=== PATIENT | male | born 1955 | race Caucasian/White ===

== ENCOUNTER 2017-05-03 05:54 | Emergency (ER) | payer BC ==
[2017-05-03] MEDS ORDERED: Sodium Chloride 0.9% 1000 ML 1,000 ML IV SCH (06:15)
--- NOTE | 2017-05-03 06:18 | ERPHSYRPT ---
- History of Present Illness Time Seen by Provider: 05/03/17 06:07 Historian: patient Exam Limitations: no limitations Patient Subjective Stated Complaint: patietn having abdominaol pain x 2 weeks, saw nurse pracitioner and she set up ultrasound for next week Triage Nursing Assessment: pt alert and orientedx3, has bowl sounds x4, hasarea on left side of abdomen appears wollen or bulged, non tender to touch Physician History: FOR THE PAST 2 WEEKS PT HAS HAD LEFT FLANK PAIN. LAST BM WAS 2 DAYS AGO & WNL. PT DENIES CHEST PAIN, SHORTNESS OF AIR, FEVER. Allergies/Adverse Reactions: No Known Drug Allergies Allergy (Unverified 08/01/15 11:04) Home Medications: Lansoprazole [Prevacid] 20 mg PO DAILY 06/02/12 [History] Diltiazem HCl 240 mg [Cardizem CD 240 MG] 240 mg PO HS 08/01/15 [History] Hx Tetanus, Diphtheria Vaccination/Date Given: Yes Hx Influenza Vaccination/Date Given: Yes Hx Pneumococcal Vaccination/Date Given: Yes Immunizations Up to Date: Yes - Review of Systems Constitutional: No Fever Respiratory: No Dyspnea Cardiac: No Chest Pain Abdominal/Gastrointestinal: Abdominal Pain, No Vomiting, No Diarrhea All Other Systems: Reviewed and Negative - Past Medical History Pertinent Past Medical History: Yes Neurological History: No Pertinent History ENT History: No Pertinent History Cardiac History: No Pertinent History, Hypertension Respiratory History: No Pertinent History Endocrine Medical History: No Pertinent History Musculoskeletal History: Arthritis GI Medical History: No Pertinent History History: No Pertinent History Psycho-Social History: No Pertinent History Male Reproductive Disorders: No Pertinent History - Past Surgical History Past Surgical History: Yes Neuro Surgical History: No Pertinent History Cardiac: No Pertinent History Respiratory: No Pertinent History Gastrointestinal: Cholecystectomy Genitourinary: No Pertinent History Musculoskeletal: No Pertinent History Male Surgical History: No Pertinent History Other Surgical History: kidney stone - Social History Smoking Status: Never smoker Exposure to second hand smoke: No Drug Use: none Patient Lives Alone: Yes - Nursing Vital Signs Nursing Vital Signs: Initial Vital Signs Temperature 97.9 F Temperature Source Oral Pulse Rate 81 Respiratory Rate 20 Pain Intensity 7 - Physical Exam General Appearance: alert Eye Exam: PERRL/EOMI Ears, Nose, Throat Exam: TMs normal, pharynx normal, moist mucous membranes Neck Exam: normal inspection Respiratory Exam: lungs clear, airway intact Cardiovascular Exam: normal heart sounds Gastrointestinal/Abdomen Exam: soft, normal bowel sounds, No tenderness Back Exam: normal range of motion Extremity Exam: normal inspection, No pedal edema Neurologic Exam: alert, cooperative Skin Exam: warm, dry SpO2 Interpretation: normal SpO2: 95 Oxygen Delivery: Room Air - Course Nursing assessment & vital signs reviewed: Yes - CT Exams Abdomen/Pelvis CT Interpretation: Tele-radiologist Report (fairly extensive colonic diverticulosis without evidence of acute diverticulitis. normal appendix. small periumbilical hernia containing fat, unchanged. no renal or ureteral calculi identified. neither kidney is hydronephrotic.) Ordered Tests: Active Orders 24 hr Category Date Time Status Clean Catch Urine Specimen STAT Care 05/03/17 06:13 Active IV Insertion STAT Care 05/03/17 06:13 Active ABDOMEN AND PELVIS W/0 CONTRAS [CT] Stat Exams 05/03/17 06:13 Taken AMYLASE Stat Lab 05/03/17 06:15 Completed CBC W DIFF Stat Lab 05/03/17 06:15 Completed CMP Stat Lab 05/03/17 06:15 Completed LIPASE Stat Lab 05/03/17 06:15 Completed UA W/ MICROSCOPIC Stat Lab 05/03/17 06:13 Completed Urine Triage Profile Stat Lab 05/03/17 06:13 Completed Medication Summary Generic Name Dose Route Start Last Admin Trade Name Freq PRN Reason Stop Dose Admin Sodium Chloride 1,000 mls @ 100 mls/hr 05/03/17 06:15 05/03/17 06:20 Sodium Chloride 0.9% 1000 Ml IV 06/02/17 06:14 100 mls/hr .Q10H TANNA Administration Lab/Rad Data: Laboratory Result Diagrams 05/03/17 06:15 05/03/17 06:15 Laboratory Results 05/03/17 05/03/17 05/03/17 Range/Units 06:15 06:15 06:13 WBC 8.5 (4.0-10.5) K/mm3 RBC 5.10 (4.1-5.6) M/mm3 Hgb 15.3 (12.5-18.0) gm/dl Hct 46.5 (42-50) % MCV 91.2 (78-100) fl MCH 30.0 (26-32) pg MCHC 32.9 (32-36) g/dl RDW 14.4 H (11.5-14.0) % Plt Count 283 (150-450) K/mm3 MPV 9.6 H (6-9.5) fl Gran % 59.1 (36.0-66.0) % Lymphocytes % 28.9 (24.0-44.0) % Monocytes % 9.4 (0.0-12.0) % Eosinophils % 2.1 (0.00-5.0) % Basophils % 0.5 (0.0-0.4) % Basophils # 0.04 (0-0.4) Sodium 139 (136-145) mEq/L Potassium 3.7 (3.5-5.1) mEq/L Chloride 104 (98-107) mEq/L Carbon Dioxide 27.0 (21-32) mEq/L Anion Gap 11.4 (5-15) MEQ/L BUN 16 (9-20) mg/dL Creatinine 1.01 (0.55-1.30) mg/dl Estimated GFR > 60 ML/MIN Glucose 130 H (70-110) MG/DL Calcium 8.9 (8.5-10.1) mg/dL Total Bilirubin 0.80 (0.2-1.0) mg/dL AST 28 (15-37) U/L ALT 41 (12-78) U/L Alkaline Phosphatase 68 (46-116) U/L Serum Total Protein 7.7 (6.4-8.2) gm/dL Albumin 3.9 (3.4-5.0) g/dL Amylase 52 (25-115) U/L Lipase 127 (73-393) U/L Ur Collection Type Urine Color (YELLOW) Urine Appearance (CLEAR) Urine pH (5-6) Ur Specific [place] (1.005-1.025) Urine Protein (Negative) Urine Glucose (UA) (NEGATIVE) mg/dL Urine Ketones (NEGATIVE) Urine Nitrite (NEGATIVE) Urine Bilirubin (NEGATIVE) Urine Urobilinogen (0-1) mg/dL Urine WBC (Auto) (NEGATIVE) Urine RBC (Auto) (0-5) Dmitry/ul Urine Microscopic RBC (0-2) /HPF Ur Epithelial Cells (FEW) /HPF Urine Bacteria (NEGATIVE) /HPF Urine Mucus (NEGATIVE) /HPF Urine Opiates Level NEG. (NEGATIVE) Ur Methadone NEG. (NEGATIVE) Urine Barbiturates NEG. (NEGATIVE) Ur Phencyclidine (PCP) NEG. (NEGATIVE) Urine Amphetamine NEG. (NEGATIVE) U Benzodiazepine Level NEG. (NEGATIVE) Urine Cocaine NEG. (NEGATIVE) Urine Marijuana (THC) NEG. (NEGATIVE) Specimen Received 05/03/17 Range/Units 06:13 WBC (4.0-10.5) K/mm3 RBC (4.1-5.6) M/mm3 Hgb (12.5-18.0) gm/dl Hct (42-50) % MCV (78-100) fl MCH (26-32) pg MCHC (32-36) g/dl RDW (11.5-14.0) % Plt Count (150-450) K/mm3 MPV (6-9.5) fl Gran % (36.0-66.0) % Lymphocytes % (24.0-44.0) % Monocytes % (0.0-12.0) % Eosinophils % (0.00-5.0) % Basophils % (0.0-0.4) % Basophils # (0-0.4) Sodium (136-145) mEq/L Potassium (3.5-5.1) mEq/L Chloride (98-107) mEq/L Carbon Dioxide (21-32) mEq/L Anion Gap (5-15) MEQ/L BUN (9-20) mg/dL Creatinine (0.55-1.30) mg/dl Estimated GFR ML/MIN Glucose (70-110) MG/DL Calcium (8.5-10.1) mg/dL Total Bilirubin (0.2-1.0) mg/dL AST (15-37) U/L ALT (12-78) U/L Alkaline Phosphatase (46-116) U/L Serum Total Protein (6.4-8.2) gm/dL Albumin (3.4-5.0) g/dL Amylase (25-115) U/L Lipase (73-393) U/L Ur Collection Type VOID Urine Color YELLOW (YELLOW) Urine Appearance CLEAR (CLEAR) Urine pH 7.0 (5-6) Ur Specific [place] 1.020 (1.005-1.025) Urine Protein NEGATIVE (Negative) Urine Glucose (UA) NEGATIVE (NEGATIVE) mg/dL Urine Ketones NEGATIVE (NEGATIVE) Urine Nitrite NEGATIVE (NEGATIVE) Urine Bilirubin NEGATIVE (NEGATIVE) Urine Urobilinogen 0.2 (0-1) mg/dL Urine WBC (Auto) NEGATIVE (NEGATIVE) Urine RBC (Auto) TRACE-INTACT (0-5) Dmitry/ul Urine Microscopic RBC 5-10 (0-2) /HPF Ur Epithelial Cells RARE (FEW) /HPF Urine Bacteria RARE (NEGATIVE) /HPF Urine Mucus SLIGHT (NEGATIVE) /HPF Urine Opiates Level (NEGATIVE) Ur Methadone (NEGATIVE) Urine Barbiturates (NEGATIVE) Ur Phencyclidine (PCP) (NEGATIVE) Urine Amphetamine (NEGATIVE) U Benzodiazepine Level (NEGATIVE) Urine Cocaine (NEGATIVE) Urine Marijuana (THC) (NEGATIVE) Specimen Received 05/03/17614 - Departure Time of Disposition: 07:12 Departure Disposition: Home Clinical Impression: LEFT FLANK PAIN Condition: Fair Critical Care Time: No Instructions: Abdominal Pain-Adult Additional Instructions: FOLLOW UP WITH DR Fernanda GALLAGHER AT 9:45 AM TODAY PRE-SCHEDULED.
[2017-05-03] MEDS ORDERED: Sodium Chloride 0.9% 1000 ML 1,000 ML ONE (06:19)
[2017-05-03 06:29] LABS: BASOPHIL % 0.5 % (0.0-0.4); Eosinophil % 2.1 % (0.00-5.0); Granulocytes % 59.1 % (36.0-66.0); Lymphocytes % 28.9 % (24.0-44.0); Mean Cell Volume 91.2 fl (78-100); Mean Platelet Volume 9.6 fl (6-9.5); Monocytes % 9.4 % (0.0-12.0); Platelet Count 283 K/mm3 (150-450); Red Cell Distribution Width 14.4 % (11.5-14.0); White Blood Count 8.5 K/mm3 (4.0-10.5)
[2017-05-03 06:48] LABS: ALBUMIN 3.9 g/dL (3.4-5.0); ALKALINE PHOSPHATASE 68 U/L (46-116); ANION GAP 11.4 MEQ/L (5-15); BLOOD UREA NITROGEN 16 mg/dL (9-20); CHLORIDE 104 mEq/L (98-107); Glucose 130 MG/DL (70-110); LIPASE 127 U/L (73-393); Potassium 3.7 mEq/L (3.5-5.1); SGOT/AST 28 U/L (15-37); SGPT/ALT 41 U/L (12-78); SODIUM 139 mEq/L (136-145); Total Protein 7.7 gm/dL (6.4-8.2)
[2017-05-03 06:52] LABS: Bacteria RARE /HPF (NEGATIVE); COMPLETE URINE MICROSCOPIC? YES; Collection Type VOID; Epithelial Cells RARE /HPF (FEW); Mucus SLIGHT /HPF (NEGATIVE)
[2017-05-03 06:54] LABS: ADD URINE CULTURE? NO (NO)
[2017-05-03 07:17] VITALS: BP 148/97; PULSE 72; O2SAT 96
--- NOTE | 2017-05-03 10:04 | XRAY ---
Indication: Left abdominal pain. Multiple contiguous axial images obtained through the abdomen and pelvis without contrast as ordered. Comparison: CT renal stone study August 01, 2015. Lung bases demonstrates stable left base calcified granulomas and left base atelectasis/scarring. Heart is not enlarged. Noncontrasted stomach and bowel loops appear nonobstructed. There is again moderate diffuse scattered colonic fecal debris throughout and descending/sigmoid diverticulosis. Normal appendix. Again previous cholecystectomy. No free air. Remaining liver, pancreas, spleen, adrenal glands, kidneys, ureters, and bladder appear unremarkable for noncontrast exam. Again minimal aortoiliac calcifications without AAA. Osseous structures intact with minimal spinal degenerative changes. Stable small fatty umbilical hernia. Impression: 1. Again fecal stasis without obstruction and colonic diverticulosis. 2. Stable fatty umbilical hernia. 3. No new/acute intra-abdominal/pelvic abnormalities on this noncontrast exam. Comment: Preliminary interpretation was made by [facility]. No discrepancy. CT DI 22.42
== END 2017-05-03 07:25 | disposition home or self-care (01) ==
LOC: ED 05:54
DX: R10.9 Unspecified abdominal pain (principal)
CPT/HCPCS: 36000; 36415; 74176; 80053; 80307; 81000; 82150; 83690; 85025; 96360; 99284

== ENCOUNTER 2022-12-05 06:21 | Day surgery (SDC) | payer MEDICARE ==
[2022-12-05] MEDS ORDERED: Lactated Ringers 1,000 ML IV ONE (06:22)
[2022-12-05] MEDS ORDERED: Lactated Ringers 1,000 ML IV SCH (06:30)
[2022-12-05] MEDS ORDERED: PHENYLEPHRINE HCL ONE (08:04)
[2022-12-05] MEDS ORDERED: DIPRIVAN 200 MG/20 ML IV ONE ×2 (08:04→08:18)
[2022-12-05] MEDS ORDERED: Xylocaine-Mpf 2% 5 Ml Vial ONE (08:04)
[2022-12-05 09:35] VITALS: PULSE 66; O2SAT 99
[2022-12-05 09:36] VITALS: BP 128/75
--- NOTE | 2022-12-05 10:37 | OP ---
SURGERY DATE/TIME: 12/05/2022 0809 PREOPERATIVE DIAGNOSIS: Positive Cologuard. POSTOPERATIVE DIAGNOSES: 1) Sigmoid colon polyps x3. 2) Diffuse diverticulosis. PROCEDURE: Diagnostic colonoscopy. SURGEON: Kayode Archer M.D. ANESTHESIA: MAC by Zachary Dixon CRNA. ESTIMATED BLOOD LOSS: Minimal. SPECIMENS: Three hot forceps polypectomies from the sigmoid colon. DESCRIPTION OF PROCEDURE: After informed written consent was obtained, the patient was taken to the endoscopy suite. He was placed in left lateral decubitus position. Anesthesia was titrated to desired level of consciousness. Digital rectal exam showed normal sphincter tone and no external lesions. The scope was inserted into the rectum and the entire colonic mucosa was traversed. The level of cecum was reached and verified with direct visualization of the ileocecal valve. Upon withdrawal diffuse diverticulosis were encountered throughout most of the length of the colon. There were three small sessile polyps in close proximity in the distal sigmoid colon. They were grasped with forceps, cauterized and removed in their entirety. They were all sent in the same specimen container due to the close proximity and small nature. Prior to withdrawal retroflexion showed minimal internal hemorrhoids but no other lesions. The scope was removed. The patient was transferred to the recovery room in good condition. He will follow up in a week for pathology results.
== END 2022-12-05 09:30 | disposition home or self-care (01) ==
LOC: SDC 06:21 → EDSTATUS 11:57
PROVIDERS: ATTEND Family Medicine
DX: K63.5 Polyp of colon (principal); R19.5 Other fecal abnormalities; K57.30 Diverticulosis of large intestine without perforation or abscess without bleeding
CPT/HCPCS: J2370; J2704